=== PATIENT | female | born 1965 | race Native Hawaiian/Other Pacific Islander ===

== ENCOUNTER 2018-04-27 07:37 | Day surgery (SDC) | payer OTHER ==
[2018-04-27] MEDS ORDERED: Lactated Ringer's 500 ML IV ONE (08:15)
[2018-04-27] MEDS ORDERED: Propofol 10 mg/ml Inj (20 ML) ONE (10:00)
[2018-04-27 10:33] VITALS: TEMP 98
[2018-04-27 10:51] VITALS: BP 116/68; PULSE 82; RESP 17; O2SAT 100
== END 2018-04-27 14:55 | disposition home or self-care (01) ==
LOC: H.ENDO 07:37
PROVIDERS: ATTEND Internal Medicine Gastroenterology
DX: Z12.11 Encounter for screening for malignant neoplasm of colon (principal); E78.5 Hyperlipidemia, unspecified; E11.9 Type 2 diabetes mellitus without complications
CPT/HCPCS: 82948; G0121; J2001; J2704; J7120